=== PATIENT | female | born 1965 | race Caucasian/White ===

== ENCOUNTER → 2016-07-18 | Outpatient (CLI) | payer BC | LOC: FIMAGING 08:07 | DX: Z12.31 Encounter for screening mammogram for malignant neoplasm of breast (principal) | CPT/HCPCS: G0202 ==

== ENCOUNTER 2016-07-22 10:08 | Emergency (ER) | payer BC ==
--- NOTE | 2016-07-22 10:30 | EDPHY ---
H & P Time Seen by Provider: 07/22/16 10:29 HPI/ROS: Chief complaint. Burning sensation behind both knees HPI. 51-year-old female 10 day sensation of burning behind both knees. Initially intermittent. Now more constant. No swelling. She has a history of DVT and is concerned about PE. She is on Coumadin and last check was about a month ago was therapeutic. Otherwise denies any trauma. No chest discomfort or shortness of breath ROS Constitutional. no fever/chills, no weakness Eyes. no problems with vision ENT. no sore throat, no nasal drainage Cardiovascular. no chest pain Respiratory. no shortness of breath, no cough Abdominal. no abdominal pain, no nausea/vomiting, no diarrhea . no problems urinating MS. Burning sensation behind both knees Skin. no rash Lymph. no swollen glands Neuro. no headache, no dizziness, no difficulty walking or with speech Past Medical/Surgical History: Hypothyroid, DVT Social History: , nonsmoker, no alcohol Smoking Status: Never smoked Physical Exam: General Appearance: Alert well-developed female mild distress vital signs stable Eyes: Pupils equal and round no pallor or injection. ENT, Mouth: Mucous membranes are moist. Respiratory: There are no retractions, lungs are clear to auscultation. Cardiovascular: Regular rate and rhythm. Gastrointestinal: Abdomen is soft and nontender, no masses, bowel sounds normal. Neurological: Awake and alert, sensory and motor exams grossly normal. Skin: Warm and dry, no rashes. Musculoskeletal: Neck is supple nontender. Extremities symmetrical, full range of motion. No obvious swelling or tenderness behind both knees or calves Psychiatric: Patient is oriented X 3, there is no agitation. Constitutional: Initial Vital Signs Temperature (C) 36.5 C 07/22/16 10:13 Heart Rate 63 07/22/16 10:13 Respiratory Rate 16 07/22/16 10:13 Blood Pressure 121/72 H 07/22/16 10:13 O2 Sat (%) 99 07/22/16 10:13 O2 Delivery Mode Room Air Allergies/Adverse Reactions: amoxicillin [Amoxicillin] Allergy (Verified 07/22/16 10:17) Home Medications: Medication Instructions Recorded Levothyroxine [Synthroid 88 mcg 88 mcg PO DAILY06 07/22/16 (*)] Warfarin Sodium [Coumadin 7.5MG 07/22/16 (*)] Medical Decision Making - Diagnostics Imaging: Bilateral leg ultrasound is negative per Dr. Green. Study is reviewed by me. No significant evidence for Nugent's cyst either. Procedures: Phlebotomy for patient's INR ED Course/Re-evaluation: INR is 2.53. No evidence for DVT. On re-evaluation patient is stable. The patient, her , and I discussed imaging and lab results. We discussed treatment plan including criteria for return importance of follow-up further evaluation. She expresses understanding and agreement Differential Diagnosis: I considered DVT though this is less likely as the patient is on Coumadin and it turns out she is therapeutic. I also considered nugent cyst. I have considered knee sprain. The patient denies any trauma that would indicate need for x-ray to diagnose fracture or dislocation - Data Points Laboratory Results: 07/22/16 10:45 PT 27.5 SEC H SEC (12.0-15.0) INR 2.53 H (0.83-1.16) APTT 32.7 SEC SEC (23.0-38.0) Departure - Departure Disposition: Home, Routine, Self-Care Clinical Impression: Knee pain, bilateral Qualifiers: Chronicity: acute Qualified Code(s): M25.561 - Pain in right knee Condition: Good Instructions: Knee Pain (ED) Additional Instructions: Your ultrasound today showed no evidence of blood clot. Your INR) Coumadin level) was 2.53. Continue Coumadin. May use Tylenol for discomfort. Activity as tolerated. Return for worsening symptoms. Follow up with Dr. Geller for continuing symptoms Referrals: Tamara Geller MD [Primary Care Provider] - 5-7 days, if not improved
[2016-07-22 11:10] LABS: INR 2.53 (0.83-1.16); PROTIME(PATIENT) 27.5 SEC (12.0-15.0)
[2016-07-22 11:11] LABS: APTT 32.7 SEC (23.0-38.0)
[2016-07-22 12:46] VITALS: BP 97/76; PULSE 57; RESP 15; TEMP 98.8; O2SAT 94
== END 2016-07-22 12:46 | disposition home or self-care (01) ==
DX: M25.561 Pain in right knee (principal)

== ENCOUNTER → 2016-07-27 | Outpatient (CLI) | payer BC | LOC: FIMAGING 08:49 | PROVIDERS: ATTEND Internal Medicine | DX: R92.8 Other abnormal and inconclusive findings on diagnostic imaging of breast (principal) | CPT/HCPCS: G0206 ==

== ENCOUNTER → 2017-09-20 | Outpatient (CLI) | payer BC | LOC: FIMAGING 07:32 | PROVIDERS: ATTEND Internal Medicine | DX: Z12.31 Encounter for screening mammogram for malignant neoplasm of breast (principal); Z80.3 Family history of malignant neoplasm of breast ==

== ENCOUNTER → 2018-09-24 | Outpatient (CLI) | payer BC | LOC: FIMAGING 09:00 | PROVIDERS: ATTEND Internal Medicine | DX: Z12.31 Encounter for screening mammogram for malignant neoplasm of breast (principal); Z80.3 Family history of malignant neoplasm of breast ==